=== PATIENT | female | born 2000 | race American Indian/Alaskan Native ===

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

== ENCOUNTER 2022-01-10 01:55 | Emergency (ER) | payer OTHER ==
[2022-01-10 02:49] LABS: ANION GAP 14.1 mEq/L (7-13); CHLORIDE,CL 104 mmol/L (98-107); SODIUM,NA 140 mmol/L (136-145)
[2022-01-10 02:50] LABS: ACETAMINOPHEN 0 ug/mL (10-30 (Therapeutic)); ESTIMATED GFR 94 mL/min (>=60)
[2022-01-10 03:00] LABS: AMPHETAMINES,URINE NEGATIVE (NEGATIVE); BARBITURATES,URINE NEGATIVE (NEGATIVE); BENZODIAZEPINE,URINE POSITIVE (NEGATIVE); MDMA (ECSTASY), URINE NEGATIVE (NEGATIVE); METHADONE,URINE NEGATIVE (NEGATIVE); METHAMPHETAMINES,URINE NEGATIVE (NEGATIVE); OPIATES,URINE NEGATIVE (NEGATIVE); OXYCODONE,URINE NEGATIVE (NEGATIVE); PHENCYCLIDINE,URINE NEGATIVE (NEGATIVE); TCA,URINE NEGATIVE (NEGATIVE)
== END 2022-01-10 03:48 | disposition home or self-care (01) ==
LOC: DL.ED 01:55
DX: R45.88 Nonsuicidal self-harm (principal)
CPT/HCPCS: 36415; 80053; 80143; 80179; 80305-QW; 80307; 81001; 85025; 99283; 99284

== ENCOUNTER 2022-10-16 01:44 | Emergency (ER) | payer OTHER ==
[2022-10-16] MEDS ORDERED: Bacitracin Oint 1 GM U/D Packet TOP ONE (01:51)
[2022-10-16 02:35] LABS: ANION GAP 13.8 mEq/L (7-13); CHLORIDE,CL 107 mmol/L (98-107); ESTIMATED GFR 106 mL/min (>=60); SODIUM,NA 142 mmol/L (136-145)
[2022-10-16 02:36] LABS: ACETAMINOPHEN 0 ug/mL (10-30 (Therapeutic))
[2022-10-16] MEDS ORDERED: Diphtheria,Pertussis(Acell),Tetanus Vaccine 0.5 ML Syringe IM ONE (02:41)
== END 2022-10-16 02:53 | disposition home or self-care (01) ==
LOC: DL.ED 01:44
DX: S51.812A Laceration without foreign body of left forearm, initial encounter (principal); S51.811A Laceration without foreign body of right forearm, initial encounter; S71.112A Laceration without foreign body, left thigh, initial encounter; S71.111A Laceration without foreign body, right thigh, initial encounter; Z91.010 Allergy to peanuts; X78.8XXA Intentional self-harm by other sharp object, initial encounter
CPT/HCPCS: 36415; 80053; 80143; 80179; 80307; 83735; 84443; 85025; 90471; 90715; 99283; 99285-25; A9270-GY

== ENCOUNTER 2023-08-30 17:30 | Emergency (ER) | payer OTHER | END 2023-08-30 22:06 | disposition home or self-care (01) | LOC: DL.ED 17:30 | DX: R06.02 Shortness of breath (principal); Z91.048 Other nonmedicinal substance allergy status; Z79.899 Other long term (current) drug therapy; Z91.010 Allergy to peanuts | CPT/HCPCS: 99283 ==

== ENCOUNTER 2023-11-12 16:39 | Emergency (ER) | payer OTHER ==
[2023-11-12 18:28] LABS: BASOPHILS PERCENT AUTO 0.5 % (0.0-1.0); EOSINOPHILS PERCENT AUTO 1.4 % (1.0-3.0); HEMATOCRIT 40.3 % (37.0-47.0); HEMOGLOBIN 13.3 g/dL (12.0-16.0); LYMPHOCYTES PERCENT AUTO 27.1 % (20.5-50.1); MEAN CORPUSCULAR HEMOGLOBIN 28.1 pg (27.0-34.0); MEAN CORPUSCULAR VOLUME 85.2 fL (80-100); MONOCYTES PERCENT AUTO 7.1 % (2-8); NEUTROPHILS PERCENT AUTO 63.9 % (42.2-75.2); PLATELET COUNT,PLT 334 10^3/uL (150-450); RED BLOOD CELL COUNT 4.73 10^6/uL (4.2-5.4); WHITE BLOOD CELL COUNT,WBC 9.7 10^3/uL (5.0-10.0)
[2023-11-12 18:50] LABS: ALANINE AMINOTRANSFERASE,ALT 26 U/L (14-59); ALBUMIN 3.3 g/dL (3.4-5.0); ALKALINE PHOSPHATASE 128 U/L (46-116); ANION GAP 11.9 mEq/L (7-13); ASPARTATE AMNIOTRANSFERASE,AST 20 U/L (15-37); BILIRUBIN TOTAL 0.3 mg/dL (0.2-1.0); BLOOD UREA NITROGEN,BUN 7 mg/dL (7-18); BUN/CREATININE RATIO 7.6 (No establ ref range); CALCIUM 8.3 mg/dL (8.5-10.1); CARBON DIOXIDE,CO2 27 mmol/L (21-32); CHLORIDE,CL 103 mmol/L (98-107); CREATININE 0.92 mg/dL (0.55-1.02); EST CRCL DRUG DOSING (CG) 86.31 mL/min; ESTIMATED GFR 90 mL/min (>=60); GLUCOSE RANDOM 91 mg/dL (70-99); POTASSIUM,K 3.9 mmol/L (3.5-5.1); SODIUM,NA 138 mmol/L (136-145)
[2023-11-12 18:51] LABS: ACETAMINOPHEN 0 ug/mL (10-30 (Therapeutic)); ETHANOL BLOOD MEDICAL < 3 mg/dL (0)
== END 2023-11-12 19:14 | disposition home or self-care (01) ==
LOC: DL.ED 16:39
DX: S41.112A Laceration without foreign body of left upper arm, initial encounter (principal); S41.111A Laceration without foreign body of right upper arm, initial encounter; S71.112A Laceration without foreign body, left thigh, initial encounter; S71.111A Laceration without foreign body, right thigh, initial encounter; F33.9 Major depressive disorder, recurrent, unspecified; F17.210 Nicotine dependence, cigarettes, uncomplicated; Z91.010 Allergy to peanuts; Z79.899 Other long term (current) drug therapy; X78.8XXA Intentional self-harm by other sharp object, initial encounter
CPT/HCPCS: 36415; 80053; 80143; 80179; 80307; 85025; 99284

== ENCOUNTER 2024-04-06 16:00 | Emergency (ER) | payer OTHER ==
[2024-04-06] MEDS: LORazepam 1 MG Tab PO ONE (17:54)
[2024-04-06] MEDS: Take Home: LORazepam 1 MG Tab, 2 Tab Pack PO ONE (19:17)
[2024-04-06] MEDS: OLANZapine 10 MG Vial IM ONE (19:17)
== END 2024-04-06 19:29 | disposition home or self-care (01) ==
LOC: DL.ED 16:00
DX: F41.9 Anxiety disorder, unspecified (principal); Z79.899 Other long term (current) drug therapy; Z91.010 Allergy to peanuts
CPT/HCPCS: 96372; 99283; A9270; J2405

== ENCOUNTER 2024-04-07 22:04 | Emergency (ER) | payer OTHER | END 2024-04-08 01:00 | disposition left against medical advice (07) | LOC: DL.ED 22:04 | DX: F41.9 Anxiety disorder, unspecified (principal); Z91.010 Allergy to peanuts | CPT/HCPCS: 99283; 99284 ==